=== PATIENT | male | born 1960 | race American Indian/Alaskan Native ===

== ENCOUNTER 2017-09-25 09:25 | Day surgery (SDC) | payer OTHER ==
--- NOTE | 2017-09-25 09:51 | Short Stay Summary ---
Short Stay Documentation Date of service: 09/25/17 Narrative H&P: 56 year old presents for colonoscopy for colon screening, personal history of colon polyps. - History Principal diagnosis: colon screening, personal history of colon polyps H&P: obtained from office Past Medical History: other (obesity, colon polyps) Past Surgical History: Other (spinal) Social history: , other (former tobacco) - Physical exam General appearance: well-nourished HEENT: PERRLA, EOMI Lungs: Clear to auscultation Heart: Regular rate, Normal S1, Normal S2 Gastrointestinal: normal, obese Neurological: Normal speech - Hospital course Hospital course: Uneventful colonoscopy. - Disposition Condition at discharge: Good Disposition: DC-[id number] TO HOME OR SELFCARE - Discharge Diagnoses (1) Colon polyps Status: Acute (2) Diverticulosis Status: Acute (3) Angiodysplasia Status: Acute (4) Internal hemorrhoids Status: Acute (5) Personal history of colonic polyps Status: Acute (6) JASMIN (obstructive sleep apnea) Status: Acute Comment: suspected Short Stay Discharge Plan Activity: other (no driving today) Diet: other (may resume usual diet) Additional Instructions: 1. Avoid NSAIDs -- including Meloxicam -- for the next 14 days. May use acetaminophen (Tylenol) if needed. 2. Patient to call for pathology results. 3. Inform first-degree relatives (siblings and children) that polyps run in their family and to begin their colon screening at age 40 rather than age 49. 4. Repeat colonoscopy in 3 years.
[2017-09-25] MEDS ORDERED: DIPRIVAN 10 MG/ML IV ONE ×4 (11:17→11:53)
--- NOTE | 2017-09-25 11:44 | Operative Report ---
Operative Report Operative Report: Date of procedure: 09/25/2017 Preprocedure diagnosis: Personal history colon polyps Post procedure diagnosis: Polyps, diverticulosis, angiodysplasia, internal hemorrhoids Procedure name(s): Colonoscopy with snare polypectomy Surgeon: Steve Nguyen MD Anesthesia: Monitored anesthesia care EBL: None Procedure: The indications, techniques, potential complications and alternatives , had been discussed in full detail prior to the date of the exam, and once again on the day of the exam. Questions were encouraged and answered, and consent was thereby obtained. The patient was placed in the left lateral decubitus position, and was medicated by anesthesia services. See the anesthesia records for details. The anal sphincter was digitally dilated. The digital exam was unremarkable. The tip of a [employer] video colonoscope was inserted through the anal sphincter and into the rectal vault. It was then advanced proximally under continuous visualization of the lumen toward the cecum. Along the way, a 5 mm sessile polyp was excised from the midsigmoid colon with a cold snare and retrieved. No bleeding was precipitated. Thereafter the instrument was advanced fully to the cecum. Overall the quality of the prep was only fair and frequent lavage was employed as needed to improve mucosal visibility. No pathology was seen in the cecum. The appendiceal orifice and ileocecal valve appeared normal. From the cecum, the instrument was slowly withdrawn with careful circumferential examination of the colonic mucosa. No pathology was seen in the ascending colon. A 3-4 mm focus of nonbleeding angiodysplasia was noted in the hepatic flexure. No pathology was seen in the transverse colon, splenic flexure or descending colon. The previous polypectomy site was noted in the sigmoid. A few diverticula were seen in the sigmoid. A 1-1.5 cm pedunculated polyp was noted in the proximal rectum and excised with a snare and cautery. The lesion was retrieved. No bleeding was precipitated. The remainder the rectum appeared normal from the forward view. Retroflexion in the rectum revealed small internal hemorrhoids. The instrument was fully withdrawn. The procedure was very well tolerated. Post procedure he was monitored in the recovery area of the GI lab to ensure stability prior to his release. See the outpatient record for details regarding instructions to patient, medications and plans for follow-up. This includes avoidance of NSAIDs for the next 14 days, recommendations regarding colon screening and tentative recommendation to repeat colonoscopy in 3 years. Final diagnosis: 1. Pedunculated polyp, 1-1.5 cm, proximal rectum 2. Sessile polyp, 5 mm, mid sigmoid colon 3. Nonbleeding angiodysplasia, hepatic flexure 4. Sigmoid diverticulosis, mild 5. Internal hemorrhoids Steve Nguyen M.D. Dictated 09/25/2017 at 11:47 AM
--- NOTE | 2017-09-25 11:47 | Anesthesia Day of Surgery ---
Anesthesia Day of Surgery - Day of Surgery Patient Examined: Yes Patient H&P Reviewed: Yes Patient is NPO: Yes
--- NOTE | 2017-09-25 11:47 | Anesthesia Consultation ---
Anesthesia Consult and Med Hx Date of service: 09/25/17 - Airway Anesthetic Teeth Evaluation: Poor ROM Head & Neck: Adequate Mental/Hyoid Distance: Adequate Mallampati Class: Class IV Intubation Access Assessment: Difficult - Pulmonary Exam CTA: Yes - Cardiac Exam Cardiac Exam: RRR - Pre-Operative Health Status ASA Pre-Surgery Classification: ASA3 Proposed Anesthetic Plan: MAC - Pulmonary Hx Smoking: Yes (quit 10 years ago) Hx Sleep Apnea: Yes (cpap) - Central Nervous System Hx Neuromuscular Disorder: Yes (gout, OA) - Other Systems Hx Alcohol Use: No Hx Substance Use: No Hx Cancer: No Hx Obesity: Yes - Additional Comments Anesthesia Medical History Comments: NAC
[2017-09-25 11:56] VITALS: BP 136/90
[2017-09-25] MEDS ORDERED: NACL 0.9% 1000 ML 1,000 ML IV SCH (12:00)
--- NOTE | 2017-09-25 14:59 | Post Anesthesia Evaluation ---
- Post Anesthesia Evaluation Patient Participated: Yes Airway Patent: Yes Stable Respiratory Function: Yes Nausea/Vomiting: No Temp > 96.8F: Yes Pain Manageable: Yes Adequeate Hydration: Yes Anesthesia Complications: No Block Receding Appropriately: Not Applicable Patient on Ventilator: No
== END 2017-09-25 09:26 | disposition home or self-care (01) ==
LOC: GIO 09:25
PROVIDERS: ATTEND Internal Medicine Gastroenterology
DX: Z09 Encounter for follow-up examination after completed treatment for conditions other than malignant neoplasm (principal); K63.5 Polyp of colon; K62.1 Rectal polyp; K57.30 Diverticulosis of large intestine without perforation or abscess without bleeding; K64.8 Other hemorrhoids; K55.20 Angiodysplasia of colon without hemorrhage; E66.01 Morbid (severe) obesity due to excess calories; Z86.010 Personal history of colon polyps; Z98.890 Other specified postprocedural states; Z87.891 Personal history of nicotine dependence; Z68.43 Body mass index [BMI] 50.0-59.9, adult
CPT/HCPCS: 45385; 88305; J2704; J7030